=== PATIENT | female | born 1970 | race Hispanic/Latino ===

== ENCOUNTER 2019-11-11 09:18 | Emergency (ER) | payer SELFPAY ==
[2019-11-11] MEDS ORDERED: Morphine 4 MG/ML VIAL ONE (09:58)
--- NOTE | 2019-11-11 09:58 | RAD ---
EXAM: 3 views of the right ankle HISTORY: Ankle pain after injury COMPARISON: None FINDINGS: 3 views of the right ankle shows a spiral fracture of the distal fibula. There is a fractur e of the medial malleolus and posterior malleolus. There is subluxation of the tibiotalar joint. Moderate surrounding soft tissue swelling is seen. IMPRESSION: Trimalleolar fracture subluxation of the right ankle
[2019-11-11] MEDS ORDERED: Morphine 2 MG/ML SYRINGE ONE (10:18)
--- NOTE | 2019-11-11 11:04 | RAD ---
EXAM: 3 views of the right ankle HISTORY: Trimalleolar fracture COMPARISON: 11/11/2019 at 10:01 AM FINDINGS: 3 views of the right ankle shows a trimalleolar fracture of the right ankle joint. An overl sanjiv fiberglass splint obscures fine bony and soft tissue detail. There is partial reduction of the tibiotalar joint subluxation. IMPRESSION: Trimalleolar fracture subluxation of the right ankle with partial reduction of the tibiot alar joint.
== END 2019-11-11 11:08 | disposition home or self-care (01) ==
LOC: MADERS 09:18
DX: S82.851A Displaced trimalleolar fracture of right lower leg, initial encounter for closed fracture (principal); X58.XXXA Exposure to other specified factors, initial encounter
CPT/HCPCS: 27818; 96374; J2270

== ENCOUNTER 2022-02-08 06:47 | Outpatient (CLI) | payer SELFPAY ==
[2022-02-08 07:35] LABS: ALT (SGPT) 22 U/L (8-55); AST (SGOT) 23 U/L (5-34); Albumin 4.4 g/dL (3.5-5.0); Alkaline Phosphatase 96 U/L (40-110); Anion Gap 13 mmol/L (10-20); BUN (Urea Nitrogen) 15 mg/dL (9.8-20.1); Bilirubin, Total 0.6 mg/dL (0.2-1.2); Calc. Creatinine Clearance 0 mL/min (70-130); Calcium 9.8 mg/dL (7.8-10.44); Carbon Dioxide 26 mmol/L (22-29); Chloride 107 mmol/L (98-107); Cholesterol 192 mg/dl (< 200 Desired); Estimated GFR 83; Globulin 3.5 g/dL (2.4-3.5); Glucose 95 mg/dL (70-105); HDL Cholesterol 63 mg/dL (>60 Neg Risk); LDL Cholesterol, Calculated 110 mg/dL; Protein, Total 7.9 g/dL (6.0-8.3); Sodium 142 mmol/L (136-145); Triglycerides 95 mg/dL (Less than 150)
[2022-02-08 12:16] LABS: HIV (1/2) Antibody/Antigen Non-Reactive (NonReactive)
== END 2022-02-08 06:48 | disposition home or self-care (01) ==
LOC: MADLAB 06:47
PROVIDERS: ATTEND Family Medicine
DX: Z01.419 Encounter for gynecological examination (general) (routine) without abnormal findings (principal); Z11.4 Encounter for screening for human immunodeficiency virus [HIV]; Z78.0 Asymptomatic menopausal state
CPT/HCPCS: 36415; 80053; 80061; 82306; 87389